=== PATIENT | male | born 1960 | race Caucasian/White ===

== ENCOUNTER 2021-03-28 13:36 | Inpatient (IN) | payer MEDICARE, OTHER ==
[2021-03-28 14:44] LABS: Basophils % (A) 0 %; Eosinophils # (A) 0.1 k/uL (0-0.7); Eosinophils % (A) 1 %; HCT 48.9 % (39.0-53.0); HGB 16.8 gm/dL (13.0-17.5); Lymphocytes # (A) 0.8 k/uL (1.0-4.8); Lymphocytes % (A) 7 %; MCH 33.4 pg (25.0-35.0); MCHC 34.4 g/dL (31.0-37.0); MCV 97.2 fL (80.0-100.0); Mean Platelet Volume 8.9; Monocytes # (A) 0.8 k/uL (0-1.0); Monocytes % (A) 6 %; Neutrophils # (A) 10.2 k/uL (1.3-7.7); Neutrophils % (A) 85 %; Platelet Count 173 k/uL (150-450); RBC 5.03 m/uL (4.30-5.90); RDW 13.9 % (11.5-15.5); WBC 11.9 k/uL (3.8-10.6)
[2021-03-28 14:46] LABS: Appearance,Urine Cloudy (Clear); Bacteria,Urine Rare /hpf; Bilirubin,Urine Negative (Negative); Blood,Urine Large (Negative); Color,Urine Yellow; Glucose,Urine (UA) Negative (Negative); Ketones,Urine Trace (Negative); Leukocyte Esterase,Urine Negative (Negative); Mucus,Urine Rare /hpf; Nitrite,Urine Negative (Negative); PH, Urine 5.5 (5.0-8.0); Protein,Urine Trace (Negative); RBC,Urine 28 /hpf (0-5); Squamous Epithelial Cell,Urine <1 /hpf (0-4); Urobilinogen,Urine <2.0 mg/dL (<2.0); WBC,Urine 3 /hpf (0-5)
[2021-03-28 14:55] LABS: Albumin 4.5 g/dL (3.5-5.0); Calcium 9.9 mg/dL (8.4-10.2); Potassium 4.2 mmol/L (3.5-5.1); Total Bilirubin 0.5 mg/dL (0.2-1.3)
[2021-03-28] MEDS ORDERED: KETOROLAC 15 MG/ML 1 ML VIAL IVP STA (16:30)
[2021-03-28] MEDS ORDERED: ONDANSETRON 4 MG/2 ML VIAL IVP STA (16:43)
[2021-03-28] MEDS ORDERED: SODIUM CHLORIDE 0.9% 1,000 ML IV ONE ×2 (16:43→19:14)
[2021-03-28] MEDS ORDERED: MORPHINE SULFATE 4 MG/ML SYRINGE IVP STA (16:43)
--- NOTE | 2021-03-28 17:45 | CT ---
EXAMINATION TYPE: CT abdomen pelvis w con DATE OF EXAM: 03/28/2021 COMPARISON: None HISTORY: Abdominal pain and nausea. CT DLP: 1776.6 mGycm Automated exposure control for dose reduction was used. CONTRAST: Performed with IV Contrast, patient injected with 100 mL of Isovue 300. The lung bases are clear of consolidation. There is no pleural effusion. Heart size is normal. There is no pericardial effusion. Stomach is intact. Liver and spleen and pancreas appear intact. The bile ducts are not dilated. There are several large calcified gallstones. Gallbladder has normal size. There is no adrenal mass. Kidneys have normal size. There is left-sided hydronephrosis and delayed le ft side pyelogram. There is mild left-sided hydroureter. There is 5 mm obstructing calculus distal le ft ureter. Right kidney shows normal excretion on the delayed images. There is no retroperitoneal jose nopathy. Bladder distends smoothly. There is no inguinal hernia. There is no free fluid in the pelvis . There are some sigmoid diverticula. I see no sign of diverticulitis. Appendix is lateral and posterio r and appears normal. There is no mesenteric edema. There is no ascites or free air. There is no jac l obstruction. The lumbar vertebra have normal alignment. There is large posterior calcification of t he endplates at L5-S1. There is developmentally adequate spinal canal and no significant spinal steno sis. There is no lumbar compression fracture. The bony pelvis is intact. The hip joints are intact. IMPRESSION: Obstructing calculus lower left ureter with left-sided hydronephrosis and hydroureter. The Normal appendix. Large calcified gallstones. No dilated ducts. Sigmoid diverticulosis.
[2021-03-28] MEDS ORDERED: NALOXONE 0.4 MG/ML 1 ML VIAL IV PRN (19:02)
[2021-03-28] MEDS ORDERED: MORPHINE SULFATE 4 MG/ML SYRINGE IV PRN (19:02)
[2021-03-28] MEDS ORDERED: KETOROLAC 15 MG/ML 1 ML VIAL IVP PRN (19:02)
[2021-03-28] MEDS ORDERED: ONDANSETRON 4 MG/2 ML VIAL IVP PRN (19:02)
--- NOTE | 2021-03-28 19:09 | ED ---
General Adult HPI - General Chief complaint: Abdominal Pain Stated complaint: Male , vomiting Time Seen by Provider: 03/28/21 16:10 Source: patient, RN notes reviewed, old records reviewed Mode of arrival: ambulatory Limitations: no limitations - History of Present Illness Initial comments: I evaluated the patient was placed in a room. Workup was started in the waiting room by nursing staff. Patient is a 60-year-old male with past medical history remarkable for CVA, TIA with no residual deficits other than blindness in the right eye as well as a remote history of renal stones presents emergency Department complaining of left flank plain. She states that this started today. He describes it as a sharp sensation in his left flank that radiates up to his left lower back as well as his left groin. This is similar to prior episodes of nephrolithiasis which he has not experienced in some years. He is endorsing some nausea as well as nonbilious, bloody emesis. Denies any change in bowel habits, and is still experiencing normal flatus. Denies any dysuria but does endorse hematuria. Denies any fevers or chills. Denies any chest pain, s hortness of breath. Denies any sick contacts. He still able to urinate. His no other acute complaints at this time. - Related Data Home Medications Medication Instructions Recorded Confirmed Aspirin EC [Ecotrin Low Dose] 81 mg PO DAILY 03/28/21 03/28/21 Allergies Allergy/AdvReac Type Severity Reaction Status Date / Time No Known Allergies Allergy Verified 03/28/21 18:46 Review of Systems ROS Statement: Those systems with pertinent positive or pertinent negative responses have been documented in the HPI. Review of Systems: CONST: Denies fever EYES: Denies blurry vision ENT: Denies nasal congestion C/V: Denies Chest pain RESP: Denies shortness of breath GI: Endorses abdominal pain/flank pain : Denies dysuria SKIN: Denies rash. MSK: Denies joint pain. NEURO: Denies headache ROS Other: All systems not noted in ROS Statement are negative. Past Medical History Past Medical History: CVA/TIA Past Surgical History: Orthopedic Surgery Past Psychological History: Anxiety, Bipolar, Depression, PTSD Smoking Status: Current every day smoker Past Alcohol Use History: Rare Past Drug Use History: None Reported General Exam - General Exam Comments Initial Comments: General: Appears in no acute distress. HEAD: Normal with no signs of head trauma. EYES: PERRLA, EOMI, conjunctiva normal, no discharge. ENT: Hearing grossly intact, normal oropharynx. RESPIRATORY: Clear breath sounds bilaterally. No wheezes, rales, or rhonchi. C/V: Regular rate and rhythm. S1 and S2 auscultated, no edema, peripheral pulses 2+ and intact throughout ABD: Abdomen is soft, nondistended. Patient has left-sided flank tenderness to palpation with radiation to his left groin. His no left lower quadrant tenderness palpation. There is no rebound wrist peritoneal signs. Patient does have left CVA tenderness to percussion. EXT: Normal range of motion, no obvious deformity SKIN: No rashes or lesions observed on exposed skin. NEURO: Alert and oriented 4. Limitations: no limitations Course Vital Signs 03/28/21 03/28/21 03/28/21 14:24 18:19 20:00 Temperature 98.1 F 97.7 F Pulse Rate 58 L 55 L 130 H Respiratory 18 18 Rate Blood Pressure 189/84 177/76 O2 Sat by Pulse 95 95 Oximetry Medical Decision Making - Medical Decision Making Based on patient's presentation and physical exam, I'm concerned for was likely nephrolithiasis and possible hydronephrosis. Laboratory studies were done by nursing staff revealed a mild leukocytosis of 11.9 which could be reactive. Patient is mildly deep bicarb at 20. Patient's urinalysis is relatively u nremarkable except for hematuria. Is not impressive for infection at this time. Addition to the workup performed by nursing staff, did recommend that we obtain a CT abdomen and pelvis due to his pain. He was in agreement this plan. Also be given a 1 L fluid bolus as well as IV morphine, Toradol, Zofran. Patient was in agreement this plan. Patient's CT imaging revealed a 5 mm nephrolithiasis in the distal left ureter. There are also signs of hydronephrosis. There is some sigmoid diverticula as well without diverticulitis. There are calcified gallstones as well. Remaining a CT is relatively unremarkable. On reevaluation, patient still complaining of pain as well as nausea and vomiti ng. I did recommend that we admit him to the hospital for pain control, nausea and vomiting control, as well as evaluation by urology due to his nephrolithiasis. He was in agreement this plan. I consulted urology and spoke with the attending it application administrator, Dr. Méndez was in agreement with the plan. Patient has no PCP and will therefore be admitted to city call, and I spoke with the mid-level provider Phan Todd who accepted the patient. Patient was therefore admitted to the hospital and serous condition. - Lab Data Result diagrams: 03/28/21 14:32 03/28/21 14:32 Lab Results 03/28/21 03/28/21 03/28/21 Range/Units 14:32 14:32 14:32 WBC 11.9 H (3.8-10.6) k/uL RBC 5.03 (4.30-5.90) m/uL Hgb 16.8 (13.0-17.5) gm/dL Hct 48.9 (39.0-53.0) % MCV 97.2 (80.0-100.0) fL MCH 33.4 (25.0-35.0) pg MCHC 34.4 (31.0-37.0) g/dL RDW 13.9 (11.5-15.5) % Plt Count 173 (150-450) k/uL MPV 8.9 Neutrophils % 85 % Lymphocytes % 7 % Monocytes % 6 % Eosinophils % 1 % Basophils % 0 % Neutrophils # 10.2 H (1.3-7.7) k/uL Lymphocytes # 0.8 L (1.0-4.8) k/uL Monocytes # 0.8 (0-1.0) k/uL Eosinophils # 0.1 (0-0.7) k/uL Basophils # 0.0 (0-0.2) k/uL Sodium 139 (137-145) mmol/L Potassium 4.2 (3.5-5.1) mmol/L Chloride 111 H (98-107) mmol/L Carbon Dioxide 20 L (22-30) mmol/L Anion Gap 8 mmol/L BUN 20 (9-20) mg/dL Creatinine 1.16 (0.66-1.25) mg/dL Est GFR (CKD-EPI)AfAm 79 (>60 ml/min/1.73 sqM) Est GFR (CKD-EPI)NonAf 68 (>60 ml/min/1.73 sqM) Glucose 134 H (74-99) mg/dL Calcium 9.9 (8.4-10.2) mg/dL Total Bilirubin 0.5 (0.2-1.3) mg/dL AST 42 (17-59) U/L ALT 34 (4-49) U/L Alkaline Phosphatase 79 (38-126) U/L Total Protein 7.0 (6.3-8.2) g/dL Albumin 4.5 (3.5-5.0) g/dL Amylase 45 (30-110) U/L Lipase 46 (23-300) U/L Urine Color Yellow Urine Appearance Cloudy (Clear) Urine pH 5.5 (5.0-8.0) Ur Specific [place] 1.020 (1.001-1.035) Urine Protein Trace H (Negative) Urine Glucose (UA) Negative (Negative) Urine Ketones Trace H (Negative) Urine Blood Large H (Negative) Urine Nitrite Negative (Negative) Urine Bilirubin Negative (Negative) Urine Urobilinogen <2.0 (<2.0) mg/dL Ur Leukocyte Esterase Negative (Negative) Urine RBC 28 H (0-5) /hpf Urine WBC 3 (0-5) /hpf Ur Squamous Epith Cells <1 (0-4) /hpf Urine Bacteria Rare H (None) /hpf Urine Mucus Rare H (None) /hpf Disposition Clinical Impression: Nephrolithiasis, Hydronephrosis, Abdominal pain, Nausea and vomiting Disposition: ADMITTED IP TO THIS [facility] Condition: Serious
[2021-03-29] MEDS: HEPARIN SODIUM,PORCINE/PF 5,000 UNIT/0.5 ML SYRINGE SQ SCH ×2 (03:20→08:51)
[2021-03-29 05:03] VITALS: BP 108/65; PULSE 56; RESP 18; TEMP 97.7
[2021-03-29] MEDS ORDERED: TAMSULOSIN 0.4 MG CAP.ER.24H PO SCH (08:30)
[2021-03-29] MEDS ORDERED: ASPIRIN 81 MG PO SCH (09:00)
--- NOTE | 2021-03-29 09:42 | P.GSCN ---
History of Present Illness Consult date: 03/29/21 Reason for Consult: Left renal colic Requesting physician: Shawn Darby History of present illness: The patient is a 60-year-old white male who presented to the ER yesterday with acute onset of left flank pain radiating to the left groin. He experienced associated nausea, vomiting, and gross hematuria. A CT scan showed mild left hydroureteronephrosis due to a 5 mm left distal ureteral calculus. He was admitted for treatment consisting of IV hydration and parenteral analgesics. He is currently comfortable. Review of Systems - Constitutional Denies chills, Denies fever - Gastrointestinal Reports nausea, Reports vomiting - Genitourinary Reports flank pain, Reports hematuria, Reports kidney stones Past Medical History Past Medical History: CVA/TIA History of Any Multi-Drug Resistant Organisms: None Reported Past Surgical History: Orthopedic Surgery Additional Past Surgical History / Comment(s): shoulder Past Psychological History: Anxiety, Bipolar, Depression, PTSD Smoking Status: Current every day smoker Past Alcohol Use History: Rare Past Drug Use History: None Reported Medications and Allergies Home Medications Medication Instructions Recorded Confirmed Type Aspirin EC [Ecotrin Low Dose] 81 mg PO DAILY 03/28/21 03/28/21 History Acetaminophen Tab [Tylenol Tab] 500 mg PO Q6H PRN #30 tablet 03/29/21 Rx HYDROcodone/APAP 5-325MG [[place] 1 tab PO Q6HR PRN #10 tab 03/29/21 Rx 5-325] Ondansetron [Zofran] 4 mg PO Q8HR PRN #12 tab 03/29/21 Rx Tamsulosin [Flomax] 0.4 mg PO PC-BRKFST #30 cap.er.24h 03/29/21 Rx Allergies Allergy/AdvReac Type Severity Reaction Status Date / Time No Known Allergies Allergy Verified 03/28/21 18:46 Surgical - Exam Vital Signs Temp Pulse Resp BP Pulse Ox 98.1 F 58 L 18 189/84 95 03/28/21 14:24 03/28/21 14:24 03/28/21 14:24 03/28/21 14:24 03/28/21 14:24 - General well developed, well nourished, no distress - Respiratory normal respiratory effort - Abdomen Abdomen: soft, non tender, no guarding, no rigid, no rebound - Genitourinary normal penis with no external lesions, testicles non-tender - Psychiatric oriented to time, oriented to person, oriented to place, speech is normal, memory intact Results - Labs 03/28/21 14:32 03/28/21 14:32 Abnormal Lab Results - Last 24 Hours (Table) 03/28/21 03/28/21 03/28/21 Range/Units 14:32 14:32 14:32 WBC 11.9 H (3.8-10.6) k/uL Neutrophils # 10.2 H (1.3-7.7) k/uL Lymphocytes # 0.8 L (1.0-4.8) k/uL Chloride 111 H (98-107) mmol/L Carbon Dioxide 20 L (22-30) mmol/L Glucose 134 H (74-99) mg/dL Urine Protein Trace H (Negative) Urine Ketones Trace H (Negative) Urine Blood Large H (Negative) Urine RBC 28 H (0-5) /hpf Urine Bacteria Rare H (None) /hpf Urine Mucus Rare H (None) /hpf Diabetes panel 03/28/21 Range/Units 14:32 Sodium 139 (137-145) mmol/L Potassium 4.2 (3.5-5.1) mmol/L Chloride 111 H (98-107) mmol/L Carbon Dioxide 20 L (22-30) mmol/L BUN 20 (9-20) mg/dL Creatinine 1.16 (0.66-1.25) mg/dL Glucose 134 H (74-99) mg/dL Calcium 9.9 (8.4-10.2) mg/dL AST 42 (17-59) U/L ALT 34 (4-49) U/L Alkaline Phosphatase 79 (38-126) U/L Total Protein 7.0 (6.3-8.2) g/dL Albumin 4.5 (3.5-5.0) g/dL Calcium panel 03/28/21 Range/Units 14:32 Calcium 9.9 (8.4-10.2) mg/dL Albumin 4.5 (3.5-5.0) g/dL Pituitary panel 03/28/21 Range/Units 14:32 Sodium 139 (137-145) mmol/L Potassium 4.2 (3.5-5.1) mmol/L Chloride 111 H (98-107) mmol/L Carbon Dioxide 20 L (22-30) mmol/L BUN 20 (9-20) mg/dL Creatinine 1.16 (0.66-1.25) mg/dL Glucose 134 H (74-99) mg/dL Calcium 9.9 (8.4-10.2) mg/dL Adrenal panel 03/28/21 Range/Units 14:32 Sodium 139 (137-145) mmol/L Potassium 4.2 (3.5-5.1) mmol/L Chloride 111 H (98-107) mmol/L Carbon Dioxide 20 L (22-30) mmol/L BUN 20 (9-20) mg/dL Creatinine 1.16 (0.66-1.25) mg/dL Glucose 134 H (74-99) mg/dL Calcium 9.9 (8.4-10.2) mg/dL Total Bilirubin 0.5 (0.2-1.3) mg/dL AST 42 (17-59) U/L ALT 34 (4-49) U/L Alkaline Phosphatase 79 (38-126) U/L Total Protein 7.0 (6.3-8.2) g/dL Albumin 4.5 (3.5-5.0) g/dL - Imaging CT scan - abdomen: report reviewed, image reviewed Assessment and Plan (1) Calculus of ureter Current Visit: Yes Status: Acute Code(s): N20.1 - CALCULUS OF URETER SNOMED Code(s): 80005164 (2) Hydronephrosis with renal and ureteral calculous obstruction Current Visit: Yes Status: Acute Code(s): N13.2 - HYDRONEPHROSIS WITH RENAL AND URETERAL CALCULOUS OBSTRUCTION SNOMED Code(s): 852457676 Plan: In summary, the patient is a 60-year-old white male admitted with left renal colic due to a 5 mm left distal ureteral calculus. His pain is currently controlled. He passed some blood yesterday evening after being admitted. His urine has not been strained, and therefore it is unclear whether he may or may not have passed the calculus. In any case, his pain is currently absent and he wishes to be discharged home. I have advised him to continue to strain his urine, and take analgesics as needed. We discussed surgical treatment options, though I explained to him that there is a high likelihood he will pass the calculus. He will follow-up with me in 2 weeks, sooner if needed. Time with Patient: Greater than 30
--- NOTE | 2021-03-29 12:54 | HP ---
HISTORY AND PHYSICAL This is a combined history and physical and discharge summary. DATE OF SERVICE: 03/29/2021 CHIEF COMPLAINTS: Left flank pain and left testicular pain. HISTORY OF PRESENT ILLNESS: This 60-year-old gentleman with a past medical history of multiple medical problems, including CVA, TIA, history of DJD, history of anxiety, bipolar, depression, PTSD, being followed by Dr. Tang in the outpatient setting, was complaining of left flank pain, left lower abdominal pain as well as left testicular pain. Evaluation in the ER showed WBC 11.9 and some mild hematuria. The patient also had a CT scan of the abdomen and pelvis which shows obstructing calculus in the lower left ureter and left-sided hydronephrosis and hydroureter. Dr. Méndez has evaluated the patient and recommended Flomax and outpatient followup also. The patient is keen to go home. There is no history of any fever, rigors or chills. No history of headache, loss of consciousness, seizures. No history of dysuria at this time. No history of chest pain or palpitations. PAST MEDICAL HISTORY: History of CVA, TIA, anxiety, bipolar, depression, PTSD. MEDICATIONS: Home medications are aspirin, Flomax, Zofran, [place], Tylenol. ALLERGIES: NONE. FAMILY HISTORY: No history of heart disease or strokes in the family. SOCIAL HISTORY: History of smoking on a daily basis. REVIEW OF SYSTEMS: ENT: No diminished hearing. No diminished vision. CARDIOVASCULAR SYSTEM: No angina, palpitations. RESPIRATORY SYSTEM: No cough, hemoptysis. GI: As mentioned earlier. : As mentioned earlier. NERVOUS SYSTEM: No numbness, weakness. ALLERGY/IMMUNOLOGY: No asthma or hay fever. MUSCULOSKELETAL: As mentioned earlier. HEMATOLOGY/ONCOLOGY: No history of anemia. ENDOCRINE: No history of diabetes, hypothyroidism. CONSTITUTIONAL: As mentioned earlier. DERMATOLOGY: Negative. RHEUMATOLOGY: Negative. PSYCHIATRY: As mentioned earlier. PHYSICAL EXAMINATION: Patient alert and oriented x3. Pulse 56, blood pressure 108/65, respiration 18, temperature 97.7, pulse ox 97% on room air. HEENT: Conjunctivae normal. NECK: No jugular venous distention. CARDIOVASCULAR: S1, S2 muffled. RESPIRATION: Breath sounds diminished at the bases. No rhonchi. No crackles. ABDOMEN: Soft. No tenderness. No guarding. No rigidity. No mass palpable. LEGS: No edema. No swelling. NERVOUS SYSTEM: Higher functions as mentioned earlier. Moves all 4 limbs. No focal motor or sensory deficit. LYMPHATICS: No lymph node palpable in neck, axillae or groin. SKIN: No ulcer, rash, bleeding. JOINTS: No active deforming arthropathy. LABS: WBC 11.9, sodium 136, potassium 4.2. Glucose 134. UA noted. ASSESSMENT: 1. Left-sided ureterolithiasis with severe abdominal pain, improved. 2. Obstructing calculus in the lower left ureter with left-sided hydronephrosis and hydroureter. 3. Increased white count, possibly reactive. 4. Increased random blood glucose. 5. History of cerebrovascular accident, transient ischemic attack. 6. History of anxiety, bipolar, depression, posttraumatic stress disorder. 7. History of nicotine dependence. 8. Obesity with body mass index of 34.5. 9. FULL CODE. RECOMMENDATIONS AND DISCUSSION: In this 60-year-old gentleman who presented with multiple medical problems, at this time the patient is symptomatically better. Urology evaluated the patient and recommended outpatient followup. The patient is keen on going home. The patient will be discharged in stable condition and guarded prognosis. DISCHARGE ADVICE AND MEDICATIONS: 1. Diet is cardiac. 2. Activity limited until followup. 3. Followup with Dr. Ezekiel Tang in 2-3 days with CBC, BMP. 4. Follow up with Dr. Méndez, Urology, as recommended. 5. Ecotrin 81 mg p.o. daily. 6. Flomax 0.4 daily. 7. [place] 5 mg q.6 p.r.n. 8. Tylenol p.r.n. 9. Zofran 4 mg q.8 p.r.n. for nausea. MMODL / IJN: [id number] /
== END 2021-03-29 10:30 | disposition home or self-care (01) | DRG 694 ==
LOC: EC 13:36 → 5NMEDONC 19:05
PROVIDERS: ADMIT Hospitalist; ATTEND Hospitalist
DX: N13.2 Hydronephrosis with renal and ureteral calculous obstruction (principal); R31.0 Gross hematuria; N50.812 Left testicular pain; K80.20 Calculus of gallbladder without cholecystitis without obstruction; E66.9 Obesity, unspecified; K57.30 Diverticulosis of large intestine without perforation or abscess without bleeding; H54.61 Unqualified visual loss, right eye, normal vision left eye; F43.10 Post-traumatic stress disorder, unspecified; F31.9 Bipolar disorder, unspecified; Z68.34 Body mass index [BMI] 34.0-34.9, adult; F41.9 Anxiety disorder, unspecified; D72.829 Elevated white blood cell count, unspecified; F17.210 Nicotine dependence, cigarettes, uncomplicated; Z79.82 Long term (current) use of aspirin; Z86.73 Personal history of transient ischemic attack (TIA), and cerebral infarction without residual deficits; Z87.442 Personal history of urinary calculi
CPT/HCPCS: 36415; 74177; 80053; 81001; 82150; 83690; 85025; 96374; 96375; 99285

== ENCOUNTER 2023-01-21 17:19 | Inpatient (IN) | payer MEDICARE, MEDICAID ==
[2023-01-21 18:31] LABS: Basophils % (A) 0 %; Eosinophils # (A) 0.1 k/uL (0-0.7); Eosinophils % (A) 1 %; HCT 47.1 % (39.0-53.0); Lymphocytes # (A) 1.4 k/uL (1.0-4.8); Lymphocytes % (A) 22 %; MCH 32.6 pg (25.0-35.0); MCV 95.7 fL (80.0-100.0); Mean Platelet Volume 7.9; Monocytes # (A) 0.5 k/uL (0-1.0); Monocytes % (A) 8 %; Neutrophils # (A) 4.4 k/uL (1.3-7.7); Neutrophils % (A) 67 %; Platelet Count 187 k/uL (150-450); RBC 4.92 m/uL (4.30-5.90); RDW 12.9 % (11.5-15.5); WBC 6.5 k/uL (3.8-10.6)
[2023-01-21 18:52] LABS: African American GFR (CKD) >90 (>60 ml/min/1.73 sqM); Alcohol <10 mg/dL; Anion Gap 9 mmol/L; Blood Urea Nitrogen 17 mg/dL (9-20); Calcium 8.9 mg/dL (8.4-10.2); Carbon Dioxide 21 mmol/L (22-30); Chloride 107 mmol/L (98-107); Glucose 107 mg/dL (74-99); Non-African American GFR(CKD) >90 (>60 ml/min/1.73 sqM); Potassium 3.8 mmol/L (3.5-5.1); Sodium 137 mmol/L (137-145)
[2023-01-21] MEDS ORDERED: LORazepam 2 MG/ML INJ IM STA (19:21)
--- NOTE | 2023-01-21 20:13 | ED ---
General Adult HPI - General Source: patient, police, RN notes reviewed, old records reviewed Mode of arrival: wheelchair <Gus Price - Last Filed: 01/21/23 20:05> <Dm Cochran - Last Filed: 01/22/23 00:52> - General Chief complaint: Psychiatric Symptoms Stated complaint: Mental Health Time Seen by Provider: 01/21/23 17:44 - History of Present Illness Initial comments: Patient is a 62-year-old male who presents emergency Department complaining of psychiatric evaluation. Patient was petitioned this patient has flight of ideas , pressured speech as well as conveying suicidal ideation. Patient denies anything to me, however he does have pressured speech throughout the conversation. Has no acute complaints. Does have a history of eye issues. His no other acute distress at this time. Presents for further evaluation. Denies hallucinations. Denies homicidal ideations. No other significant past medical history. Presents for further evaluation. Patient's petition states that he is manic, is threatening tissue himself in the head with a gun. Does have access to guns. No attempts. (Gus Price) - Related Data Home Medications Medication Instructions Recorded Confirmed ALPRAZolam [Xanax] 0.25 mg PO TID PRN 01/21/23 01/22/23 Allergies Allergy/AdvReac Type Severity Reaction Status Date / Time No Known Allergies Allergy Verified 01/22/23 00:10 Review of Systems ROS Other: All systems not noted in ROS Statement are negative. <Gus Price - Last Filed: 01/21/23 20:05> ROS Other: All systems not noted in ROS Statement are negative. <Dm Cochran - Last Filed: 01/22/23 00:52> ROS Statement: Those systems with pertinent positive or pertinent negative responses have been documented in the HPI. Review of Systems: CONST: Denies fever EYES: Denies blurry vision ENT: Denies nasal congestion C/V: Denies Chest pain RESP: Denies shortness of breath GI: Denies abdominal pain : Denies dysuria SKIN: Denies rash. MSK: Denies joint pain. NEURO: Denies headache PSYCH: Denies suicidal and homicidal ideations/plans/attempts. Denies visual or auditory hallucinations. (Gus Price) Past Medical History Past Medical History: CVA/TIA History of Any Multi-Drug Resistant Organisms: None Reported Past Surgical History: Orthopedic Surgery Additional Past Surgical History / Comment(s): shoulder Past Psychological History: Anxiety, Bipolar, Depression, PTSD Smoking Status: Current every day smoker Past Alcohol Use History: Rare Past Drug Use History: None Reported <Gus Price - Last Filed: 01/21/23 20:05> General Exam <Gus Price - Last Filed: 01/21/23 20:05> - General Exam Comments Initial Comments: General: Appears in no acute distress. Patient appears manic, has pressured speech as well as flight of ideas. HEAD: Normal with no signs of head trauma. EYES: EOMI ENT: Hearing grossly intact, normal oropharynx. RESPIRATORY: Clear breath sounds bilaterally. No wheezes, rales, or rhonchi. C/V: Regular rate and rhythm. S1 and S2 auscultated, peripheral pulses 2+ and intact throughout ABD: Abd is soft, nontender, nondistended EXT: Normal range of motion, no obvious deformity SKIN: No rashes or lesions observed on exposed skin. NEURO: Alert and oriented 4. No focal deficits. (Gus Price) Course Vital Signs 01/21/23 17:27 Temperature 98 F Pulse Rate 96 Respiratory 18 Rate Blood Pressure 161/92 O2 Sat by Pulse 96 Oximetry Medical Decision Making - Lab Data Result diagrams: 01/21/23 18:20 01/21/23 18:20 - EKG Data -: EKG Interpreted by Me <Gus Price - Last Filed: 01/21/23 20:05> - Lab Data Result diagrams: 01/21/23 18:20 01/21/23 18:20 <Dm Cochran - Last Filed: 01/22/23 00:52> - Medical Decision Making Was pt. sent in by a medical professional or institution (, PA, CONCRETE PLANT LABORER, urgent care, hospital, or jail...) When possible be specific @ -No Did you speak to anyone other than the patient for history (EMS, parent, family, police, friend...)? What history was obtained from this source @ -No Did you review nursing and triage notes (agree or disagree)? Why? @ -I reviewed and agree with nursing and triage notes Were old charts reviewed (outside hosp., previous admission, EMS record, old EKG, old radiological studies, urgent care reports/EKG's, jail records)? Report findings @ -I reviewed the patient's petition. Differential Diagnosis (chest pain, altered mental status, abdominal pain women, abdominal pain men, vaginal bleeding, weakness, fever, dyspnea, syncope, headache, dizziness, GI bleed, back pain, seizure, CVA, palpatations, mental health, musculoskeletal)? @ -Differential Mental Health Depression, anxiety, bipolar, psychosis, schizophrenia, borderline personality, situational depression, adjustment disorder, behavioral disorder, brain tumor, malingering, substance abuse, encephalopathy, medication reaction, dementia, hypothyroidism, degenerative neurologic disorder, lupus.... This is not meant to be all-inclusive list EKG interpreted by me (3pts min.). @ -As above X-rays interpreted by me (1pt min.). @ -None done CT interpreted by me (1pt min.). @ -None done U/S interpreted by me (1pt. min.). @ -None done What testing was considered but not performed or refused? (CT, X-rays, U/S, labs)? Why? @ -None What meds were considered but not given or refused? Why? @ -None Did you discuss the management of the patient with other professionals (professionals i.e. , PA, CONCRETE PLANT LABORER, lab, RT, psych nurse, 7th grade social studies teacher, developer architect, teacher, corporate security officer, keycase assembler)? Give summary @ -EPS notified patient is medically cleared for evaluation. Was smoking cessation discussed for >3mins.? @ -No Was critical care preformed (if so, how long)? @ -No Were there social determinants of health that impacted care today? How? (Homelessness, low income, unemployed, alcoholism, drug addiction, transportation, low edu. Level, literacy, decrease access to med. care, half-way, rehab)? @ -No Was there de-escalation of care discussed even if they declined (Discuss DNR or withdrawal of care, Hospice)? DNR status @ -No What co-morbidities impacted this encounter? (DM, HTN, Smoking, COPD, CAD, Cancer, CVA, ARF, Chemo, Hep., AIDS, mental health diagnosis, sleep apnea, morbid obesity)? @ -None Was patient admitted / discharged? Hospital course, mention meds given and route, prescriptions, significant lab abnormalities, going to OR and other pertinent info. @ -Based on the patient's presentation, physical exam, as well as petition I do believe he requires psychiatric evaluation. Due to his age we will obtain screening labs. Screening EKG will also be obtained. He was in agreement this plan. Vital signs within acceptable limits. He has obvious pressured speech and I'm concerned for an acute manic episode for acute psychotic episode. Labs are within acceptable limits. EKG unremarkable. Placed in green scrubs. Alcohol level is 0. Suicide precautions place. Severe was ordered. Patient is medically cleared psychiatric evaluation at this time. Disposition is per minute psychiatric evaluation. EPS was notified. Undiagnosed new problem with uncertain prognosis? @ -No Drug Therapy requiring intensive monitoring for toxicity (Heparin, Nitro, Insulin, Cardizem)? @ -No Were any procedures done? @ -No Diagnosis/symptom? @ -Acute psychosis, manic, but of ideas with pressured speech, suicidal ideations Acute, or Chronic, or Acute on Chronic? @ -Acute Uncomplicated (without systemic symptoms) or Complicated (systemic symptoms)? @ -Complicated Side effects of treatment? @ -No Exacerbation, Progression, or Severe Exacerbation? @ -No Poses a threat to life or bodily function? How? (Chest pain, USA, AL, pneumonia, PE, COPD, DKA, ARF, appy, cholecystitis, CVA, Diverticulitis, Homicidal, Suicidal, threat to staff... and all critical care pts) @ -yes (Gus Price) The patient was sent out to me from Dr. Price. The patient was signed out pending evaluation by EPS. The patient was evaluated by EPS the bedside and did recommend inpatient admission. I did fill out a clinical certificate for the patient and the patient did continue to remain stable. The patient was admitted in stable condition. (Dm Cochran) - Lab Data Lab Results 01/21/23 01/21/23 01/21/23 Range/Units 18:20 18:20 19:32 WBC 6.5 (3.8-10.6) k/uL RBC 4.92 (4.30-5.90) m/uL Hgb 16.0 (13.0-17.5) gm/dL Hct 47.1 (39.0-53.0) % MCV 95.7 (80.0-100.0) fL MCH 32.6 (25.0-35.0) pg MCHC 34.0 (31.0-37.0) g/dL RDW 12.9 (11.5-15.5) % Plt Count 187 (150-450) k/uL MPV 7.9 Neutrophils % 67 % Lymphocytes % 22 % Monocytes % 8 % Eosinophils % 1 % Basophils % 0 % Neutrophils # 4.4 (1.3-7.7) k/uL Lymphocytes # 1.4 (1.0-4.8) k/uL Monocytes # 0.5 (0-1.0) k/uL Eosinophils # 0.1 (0-0.7) k/uL Basophils # 0.0 (0-0.2) k/uL Sodium 137 (137-145) mmol/L Potassium 3.8 (3.5-5.1) mmol/L Chloride 107 (98-107) mmol/L Carbon Dioxide 21 L (22-30) mmol/L Anion Gap 9 mmol/L BUN 17 (9-20) mg/dL Creatinine 0.88 (0.66-1.25) mg/dL Est GFR (CKD-EPI)AfAm >90 (>60 ml/min/1.73 sqM) Est GFR (CKD-EPI)NonAf >90 (>60 ml/min/1.73 sqM) Glucose 107 H (74-99) mg/dL Calcium 8.9 (8.4-10.2) mg/dL Urine Color Urine Appearance (Clear) Urine pH (5.0-8.0) Ur Specific [place] (1.001-1.035) Urine Protein (Negative) Urine Glucose (UA) (Negative) Urine Ketones (Negative) Urine Blood (Negative) Urine Nitrite (Negative) Urine Bilirubin (Negative) Urine Urobilinogen (<2.0) mg/dL Ur Leukocyte Esterase (Negative) Urine Opiates Screen (NotDetected) Ur Oxycodone Screen (NotDetected) Urine Methadone Screen (NotDetected) Ur Propoxyphene Screen (NotDetected) Ur Barbiturates Screen (NotDetected) U Tricyclic Antidepress (NotDetected) Ur Phencyclidine Scrn (NotDetected) Ur Amphetamines Screen (NotDetected) U Methamphetamines Scrn (NotDetected) U Benzodiazepines Scrn (NotDetected) Urine Cocaine Screen (NotDetected) U Marijuana (THC) Screen (NotDetected) Serum Alcohol <10 mg/dL Coronavirus (PCR) Not Detected (Not Detectd) 01/21/23 01/21/23 Range/Units 20:00 20:00 WBC (3.8-10.6) k/uL RBC (4.30-5.90) m/uL Hgb (13.0-17.5) gm/dL Hct (39.0-53.0) % MCV (80.0-100.0) fL MCH (25.0-35.0) pg MCHC (31.0-37.0) g/dL RDW (11.5-15.5) % Plt Count (150-450) k/uL MPV Neutrophils % % Lymphocytes % % Monocytes % % Eosinophils % % Basophils % % Neutrophils # (1.3-7.7) k/uL Lymphocytes # (1.0-4.8) k/uL Monocytes # (0-1.0) k/uL Eosinophils # (0-0.7) k/uL Basophils # (0-0.2) k/uL Sodium (137-145) mmol/L Potassium (3.5-5.1) mmol/L Chloride (98-107) mmol/L Carbon Dioxide (22-30) mmol/L Anion Gap mmol/L BUN (9-20) mg/dL Creatinine (0.66-1.25) mg/dL Est GFR (CKD-EPI)AfAm (>60 ml/min/1.73 sqM) Est GFR (CKD-EPI)NonAf (>60 ml/min/1.73 sqM) Glucose (74-99) mg/dL Calcium (8.4-10.2) mg/dL Urine Color Yellow Urine Appearance Clear (Clear) Urine pH 5.0 (5.0-8.0) Ur Specific [place] 1.025 (1.001-1.035) Urine Protein Trace H (Negative) Urine Glucose (UA) Negative (Negative) Urine Ketones 1+ H (Negative) Urine Blood Negative (Negative) Urine Nitrite Negative (Negative) Urine Bilirubin Negative (Negative) Urine Urobilinogen <2.0 (<2.0) mg/dL Ur Leukocyte Esterase Negative (Negative) Urine Opiates Screen Not Detected (NotDetected) Ur Oxycodone Screen Not Detected (NotDetected) Urine Methadone Screen Not Detected (NotDetected) Ur Propoxyphene Screen Not Detected (NotDetected) Ur Barbiturates Screen Not Detected (NotDetected) U Tricyclic Antidepress Not Detected (NotDetected) Ur Phencyclidine Scrn Not Detected (NotDetected) Ur Amphetamines Screen Not Detected (NotDetected) U Methamphetamines Scrn Not Detected (NotDetected) U Benzodiazepines Scrn Detected H (NotDetected) Urine Cocaine Screen Not Detected (NotDetected) U Marijuana (THC) Screen Detected H (NotDetected) Serum Alcohol mg/dL Coronavirus (PCR) (Not Detectd) - EKG Data EKG Comments: 12-lead Electrocardiogram Interpretation Note EKG was reviewed and interpreted by myself. 12-lead ECG performed at 1922 is interpreted by me as revealing normal sinus rhythm at a rate of 76 beats per minute. Right axis deviation. CA interval is 165 ms, QRS duration is 126 ms, QTc is 434 ms. When isolated T-wave inversion in lead III.. There were no obvious ST or T wave abnormalities to suggest myocardial ischemia or injury. R wave progression across the precordium was satisfactory. By my interpretation this EKG is non-diagnostic for acute ischemia. (Gus Price) Disposition <Gus Price - Last Filed: 01/21/23 20:05> Is patient prescribed a controlled substance at d/c from ED?: No Time of Disposition: 00:05 Decision to Admit Reason: Admit from EC Decision Date: 01/22/23 Decision Time: 00:05 <Dm Cochran - Last Filed: 01/22/23 00:52> Clinical Impression: Suicidal ideation, Acute psychosis, Marissa Disposition: ADMITTED IP TO THIS HOSP Condition: Stable
[2023-01-21 20:32] LABS: Amphetamine Screen,Urine Not Detected (NotDetected); Barbiturate Screen,Urine Not Detected (NotDetected); Benzodiazepines Screen,Urine Detected (NotDetected); Cocaine Screen,Urine Not Detected (NotDetected); Methadone Screen, Urine Not Detected (NotDetected); Opiate Screen,Urine Not Detected (NotDetected); Oxycodone Screen, Urine Not Detected (NotDetected); Phencyclidine Screen,Urine Not Detected (NotDetected); Tricyclic Antidepressant,Urine Not Detected (NotDetected); Urn Cannabinoid Scrn Detected (NotDetected)
[2023-01-21] MEDS ORDERED: OLANZapine 10 MG VIAL IM ONE (23:00)
[2023-01-22] MEDS ORDERED: ACETAMINOPHEN TAB 325 MG TAB PO PRN (00:05)
[2023-01-22] MEDS ORDERED: MAGNESIUM HYDROXIDE 2,400 MG/30 ML CUP PO PRN (00:05)
[2023-01-22] MEDS ORDERED: MAG HYDROX/AL HYDROX/SIMETH 30 ML CUP PO PRN (00:05)
[2023-01-22] MEDS ORDERED: OLANZapine 10 MG VIAL IM PRN (00:08)
[2023-01-22] MEDS ORDERED: OLANZapine 5 MG TAB PO PRN (00:08)
[2023-01-22] MEDS ORDERED: hydrOXYzine pamoate 25 MG CAP PO PRN (00:09)
[2023-01-22] MEDS ORDERED: hydrOXYzine HCL 50 MG/ML 1 ML VIAL IM PRN (00:09)
[2023-01-22 00:17] LABS: Appearance,Urine Clear (Clear); Bilirubin,Urine Negative (Negative); Blood,Urine Negative (Negative); Color,Urine Yellow; Glucose,Urine (UA) Negative (Negative); Ketones,Urine 1+ (Negative); Leukocyte Esterase,Urine Negative (Negative); Nitrite,Urine Negative (Negative); Protein,Urine Trace (Negative); Specific Gravity,Urine 1.025 (1.001-1.035); Urobilinogen,Urine <2.0 mg/dL (<2.0)
[2023-01-22] MEDS: NICOTINE 14MG/24HR PATCH TRANSDERM SCH (09:46)
[2023-01-22 10:47] LABS: ALT 34 U/L (4-49); AST 43 U/L (17-59); Albumin 4.3 g/dL (3.5-5.0); Alkaline Phosphatase 81 U/L (38-126); Bilirubin, Delta 0.3 mg/dL (0.0-0.2); Total Bilirubin 1.3 mg/dL (0.2-1.3); Total Protein 7.1 g/dL (6.3-8.2)
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
[2023-01-22 16:43] LABS: Chol/HDL Ratio 3.32 Ratio; VLDL Calculation 15.48 mg/dL (5.00-40.00)
[2023-01-22] MEDS ORDERED: QUEtiapine 50 MG TAB PO SCH (21:00)
[2023-01-22] MEDS: DIVALPROEX SPRINKLE 125 MG CAP.SPRINK PO SCH (21:39)
--- NOTE | 2023-01-23 02:59 | P.CONS ---
History of Present Illness - Reason for Consult Consult date: 01/22/23 Medical evaluation - Chief Complaint Psych evaluation - History of Present Illness 62-year-old male with history of stroke Patient refused medical evaluation ER chart review shows that patient come in for psych evaluation he was petitioned due to psychosis with flight of ideas and pressured speech he also conveyed some suicidal ideation the petition states that he was manic and was threatening to cut himself by using a gun to his head and that he does have access to Review of systems unavailable Physical exam unavailable patient declined Assessment and plan Suicidal ideation Psychosis Management per psych Blood work reviewed showed White count of 6.5 hemoglobin 16 both unremarkable Renal function sodium 137 potassium 3.8 BUN 17 creatinine 0.88 unremarkable Urine drug screen positive for meth and marijuana Thank you for this consultation placed which at [facility] if patient is willing to discuss Past Medical History Past Medical History: CVA/TIA Additional Past Medical History / Comment(s): States was at [facility] 01/13- for TIA History of Any Multi-Drug Resistant Organisms: None Reported Past Surgical History: Orthopedic Surgery Additional Past Surgical History / Comment(s): shoulder Past Anesthesia/Blood Transfusion Reactions: Unable to Obtain Past Psychological History: Anxiety, Bipolar, Depression, PTSD Smoking Status: Current every day smoker Past Alcohol Use History: Rare Past Drug Use History: Marijuana Additional Drug Use History / Comment(s): 01/21/2023 UDS +benzos (prescribed) and marijuana Medications and Allergies Home Medications Medication Instructions Recorded Confirmed Type ALPRAZolam [Xanax] 0.25 mg PO TID PRN 01/21/23 01/22/23 History Allergies Allergy/AdvReac Type Severity Reaction Status Date / Time No Known Allergies Allergy Verified 01/22/23 00:10 Physical Exam Vitals: Vital Signs Temp Pulse Resp BP Pulse Ox 01/22/23 04:32 97.2 F L 61 15 169/76 96 Results CBC & Chem 7: 01/21/23 18:20 01/21/23 18:20 Labs: Abnormal Lab Results - Last 24 Hours (Table) 01/22/23 Range/Units 10:00 Delta Bilirubin 0.3 H (0.0-0.2) mg/dL
[2023-01-23] MEDS: NICOTINE 14MG/24HR PATCH TRANSDERM SCH (08:19)
[2023-01-23] MEDS: DIVALPROEX SPRINKLE 125 MG CAP.SPRINK PO SCH ×2 (08:19→21:28)
[2023-01-23] MEDS ORDERED: DIVALPROEX SPRINKLE 125 MG CAP.SPRINK PO STA (11:06)
--- NOTE | 2023-01-23 13:19 | P.PN ---
Progress Note - Text Progress Note Date: 01/23/23 Interval History: Patient was seen wandering the hallways and was directable and agreeable to speak with writer editor in the office. Currently, the patient continues to display mood lability, pressured speech, and endorses grandiose delusions. The patient continues to be fixated on discharge and attempts to bargain with this provider in order to be discharged earlier. He states that he will take the medications if it means that he can leave and come back when he needs to. The patient was informed that he is being held involuntarily and has been petitioned and certified for mental health treatment. He is currently denying any suicidal or homicidal ideation, intention, and/or plan. He is not reporting any auditory or visual hallucinations. He continues to be quite labile and grandiose and often make statements about how he is smarter than everyone in the unit. He also has been refusing medications. Mental Status Exam: General Appearance: Patient appears to be stated age is alert, difficult to direct and attempts to cooperate. Behavior: Displays elevated psychomotor activity. Speech: Patient's speech is fluent and spontaneous. Loud in volume. Pressured. Mood/Affect: Mood is "I'm ready to go home," affect is expansive and labile. Suicidality/Homicidality: Patient reports no suicidal or homicidal ideation, intention, and/or plan. Perceptions: Patient denies any visual hallucinations and denies any auditory hallucinations Though content/process: Flight of ideas and loose association is evident. Grandiose. Memory and concentration: Grossly poor at this time Judgment and insight: Poor Vital Signs Temp 97.9 F 01/23/23 07:12 Pulse 88 01/23/23 07:12 Resp 19 01/23/23 07:12 BP 191/75 01/23/23 07:12 Pulse Ox 92 L 01/23/23 07:12 FiO2 Laboratory Results - Last 24 Hours 01/22/23 01/22/23 10:00 10:[address] Glu mg/dL 111 Hemoglobin A1c 5.5 Triglycerides 77.40 Cholesterol 161.00 LDL Cholesterol, Calc 97.0 VLDL Cholesterol, Calc 15.48 HDL Cholesterol 48.50 Cholesterol/HDL Ratio 3.32 Assessment Bipolar 1 disorder, manic episode Cannabis use disorder Nicotine dependence PTSD Plan: -Patient continues to meet criteria for inpatient psychiatric admission for symptom stabilization and safety. The patient has been petitioned and certified. -Medications: Patient has been nonadherent with his medications. He states he'll take them today. Continue Depakote 500 mg by mouth twice a day for mood stabilization Continue Seroquel 100 mg daily at bedtime for mood stabilization -When necessary Zyprexa and Vistaril for agitation/aggression. -NRT - nicotine patch -SW on board for discharge planning. Encouraged the patient to participate in milieu.
[2023-01-23] MEDS ORDERED: QUEtiapine 100 MG TAB PO SCH (21:00)
[2023-01-24] MEDS: DIVALPROEX SPRINKLE 125 MG CAP.SPRINK PO SCH (08:23)
[2023-01-24] MEDS: NICOTINE 14MG/24HR PATCH TRANSDERM SCH (08:24)
[2023-01-24] MEDS: ARIPiprazole 10 MG TAB PO SCH (12:33)
--- NOTE | 2023-01-24 13:09 | P.PN ---
Progress Note - Text Progress Note Date: 01/24/23 Interval History: Patient was seen wandering the hallways and was directable and agreeable to speak with life insurance underwriter in the office. The patient continues to go on multiple tangents and present with pressured nonlinear speech. His mood continues to be labile. Despite this provider educating him on the process of inpatient psychiatric hospitalization, the patient constantly requires reeducation and continues to be very fixated on discharge or "bringing my guitar in so I can play for the patients." He is not reporting any suicidal or homicidal ideation, intention, and/or plan. He is not reporting any auditory or visual hallucinations. He denies any paranoia however does report some grandiosity. He has been refusing the Seroquel however states that he will take Abilify. He is agreeable with the titration of his Depakote. Mental Status Exam: Grossly unchanged from yesterday to General Appearance: Patient appears to be stated age is alert, difficult to direct and attempts to cooperate. Behavior: Displays elevated psychomotor activity. Speech: Patient's speech is fluent and spontaneous. Loud in volume. Pressured. More interruptible today. Mood/Affect: Mood is "I need to go home," affect is expansive and labile. Suicidality/Homicidality: Patient reports no suicidal or homicidal ideation, intention, and/or plan. Perceptions: Patient denies any visual hallucinations and denies any auditory hallucinations Though content/process: Flight of ideas and loose association is evident. Grandiose. Memory and concentration: Grossly poor at this time Judgment and insight: Poor Vital Signs Temp 97.4 F L 01/24/23 06:55 Pulse 76 01/24/23 06:55 Resp 18 01/24/23 06:55 BP 172/80 01/24/23 06:55 Pulse Ox 92 L 01/23/23 07:12 FiO2 Laboratory Results WBC 6.5 k/uL (3.8-10.6) 01/21/23 18:20 RBC 4.92 m/uL (4.30-5.90) 01/21/23 18:20 Hgb 16.0 gm/dL (13.0-17.5) 01/21/23 18:20 Hct 47.1 % (39.0-53.0) 01/21/23 18:20 MCV 95.7 fL (80.0-100.0) 01/21/23 18:20 MCH 32.6 pg (25.0-35.0) 01/21/23 18:20 MCHC 34.0 g/dL (31.0-37.0) 01/21/23 18:20 RDW 12.9 % (11.5-15.5) 01/21/23 18:20 Plt Count 187 k/uL (150-450) 01/21/23 18:20 MPV 7.9 01/21/23 18:20 Neutrophils % 67 % 01/21/23 18:20 Lymphocytes % 22 % 01/21/23 18:20 Monocytes % 8 % 01/21/23 18:20 Eosinophils % 1 % 01/21/23 18:20 Basophils % 0 % 01/21/23 18:20 Neutrophils # 4.4 k/uL (1.3-7.7) 01/21/23 18:20 Lymphocytes # 1.4 k/uL (1.0-4.8) 01/21/23 18:20 Monocytes # 0.5 k/uL (0-1.0) 01/21/23 18:20 Eosinophils # 0.1 k/uL (0-0.7) 01/21/23 18:20 Basophils # 0.0 k/uL (0-0.2) 01/21/23 18:20 Sodium 137 mmol/L (137-145) 01/21/23 18:20 Potassium 3.8 mmol/L (3.5-5.1) 01/21/23 18:20 Chloride 107 mmol/L (98-107) 01/21/23 18:20 Carbon Dioxide 21 mmol/L (22-30) L 01/21/23 18:20 Anion Gap 9 mmol/L 01/21/23 18:20 BUN 17 mg/dL (9-20) 01/21/23 18:20 Creatinine 0.88 mg/dL (0.66-1.25) 01/21/23 18:20 Est GFR (CKD-EPI)AfAm >90 (>60 ml/min/1.73 sqM) 01/21/23 18:20 Est GFR (CKD-EPI)NonAf >90 (>60 ml/min/1.73 sqM) 01/21/23 18:20 Glucose 107 mg/dL (74-99) H 01/21/23 18:[address] Glu mg/dL 111 mg/dL 01/22/23 10:00 Hemoglobin A1c 5.5 % (<=6.0) 01/22/23 10:00 Calcium 8.9 mg/dL (8.4-10.2) 01/21/23 18:20 Total Bilirubin 1.3 mg/dL (0.2-1.3) 01/22/23 10:00 Conjugated Bilirubin 0.0 mg/dL (0.0-0.3) 01/22/23 10:00 Unconjugated Bilirubin 1.0 mg/dL (0.0-1.1) 01/22/23 10:00 Delta Bilirubin 0.3 mg/dL (0.0-0.2) H 01/22/23 10:00 AST 43 U/L (17-59) 01/22/23 10:00 ALT 34 U/L (4-49) 01/22/23 10:00 Alkaline Phosphatase 81 U/L (38-126) 01/22/23 10:00 Total Protein 7.1 g/dL (6.3-8.2) 01/22/23 10:00 Albumin 4.3 g/dL (3.5-5.0) 01/22/23 10:00 Triglycerides 77.40 mg/dL (0.00-149.00) 01/22/23 10:00 Cholesterol 161.00 mg/dL (0.00-200.00) 01/22/23 10:00 LDL Cholesterol, Calc 97.0 mg/dL (0.0-131.0) 01/22/23 10:00 VLDL Cholesterol, Calc 15.48 mg/dL (5.00-40.00) 01/22/23 10:00 HDL Cholesterol 48.50 mg/dL (40.00-60.00) 01/22/23 10:00 Cholesterol/HDL Ratio 3.32 Ratio 01/22/23 10:00 TSH 0.879 mIU/L (0.465-4.680) 01/22/23 10:00 Urine Color Yellow 01/21/23 20:00 Urine Appearance Clear (Clear) 01/21/23 20:00 Urine pH 5.0 (5.0-8.0) 01/21/23 20:00 Ur Specific [place] 1.025 (1.001-1.035) 01/21/23 20:00 Urine Protein Trace (Negative) H 01/21/23 20:00 Urine Glucose (UA) Negative (Negative) 01/21/23 20:00 Urine Ketones 1+ (Negative) H 01/21/23 20:00 Urine Blood Negative (Negative) 01/21/23 20:00 Urine Nitrite Negative (Negative) 01/21/23 20:00 Urine Bilirubin Negative (Negative) 01/21/23 20:00 Urine Urobilinogen <2.0 mg/dL (<2.0) 01/21/23 20:00 Ur Leukocyte Esterase Negative (Negative) 01/21/23 20:00 Urine Opiates Screen Not Detected (NotDetected) 01/21/23 20:00 Ur Oxycodone Screen Not Detected (NotDetected) 01/21/23 20:00 Urine Methadone Screen Not Detected (NotDetected) 01/21/23 20:00 Ur Propoxyphene Screen Not Detected (NotDetected) 01/21/23 20:00 Ur Barbiturates Screen Not Detected (NotDetected) 01/21/23 20:00 U Tricyclic Antidepress Not Detected (NotDetected) 01/21/23 20:00 Ur Phencyclidine Scrn Not Detected (NotDetected) 01/21/23 20:00 Ur Amphetamines Screen Not Detected (NotDetected) 01/21/23 20:00 U Methamphetamines Scrn Not Detected (NotDetected) 01/21/23 20:00 U Benzodiazepines Scrn Detected (NotDetected) H 01/21/23 20:00 Urine Cocaine Screen Not Detected (NotDetected) 01/21/23 20:00 U Marijuana (THC) Screen Detected (NotDetected) H 01/21/23 20:00 Serum Alcohol <10 mg/dL 01/21/23 18:20 Coronavirus (PCR) Not Detected (Not Detectd) 01/21/23 19:32 Assessment Bipolar 1 disorder, manic episode Cannabis use disorder Nicotine dependence PTSD Plan: -Patient continues to meet criteria for inpatient psychiatric admission for symptom stabilization and safety. The patient has been petitioned and certified. Patient deferred until the court. -Medications: Patient has been nonadherent with his medications. He states he'll take them today. Increase Depakote to 500 mg in the morning and 1000 mg at bedtime for mood stabilization Start Abilify 10 mg by mouth at noon time for mood stabilization -When necessary Zyprexa and Vistaril for agitation/aggression. -NRT - nicotine patch -SW on board for discharge planning. Encouraged the patient to participate in milieu.
[2023-01-24] MEDS: DIVALPROEX 500 MG TABLET.DR PO SCH (21:14)
[2023-01-25] MEDS: NICOTINE 14MG/24HR PATCH TRANSDERM SCH (08:22)
[2023-01-25] MEDS ORDERED: DIVALPROEX SPRINKLE 125 MG CAP.SPRINK PO SCH (09:00)
[2023-01-25] MEDS ORDERED: DIVALPROEX 500 MG TABLET.DR PO SCH (09:00)
[2023-01-25] MEDS ORDERED: DIVALPROEX 500 MG TABLET.DR PO STA (14:02)
--- NOTE | 2023-01-25 14:18 | P.PN ---
Subjective Progress Note Date: 01/25/23 Principal diagnosis: Progress note He was seen today in persona and was discussed at team meeting. He was highly agitated initially at the meeting in a heightened sense or urgency re; his Plan of [place] the border to [facility] . He talked with pressure of speech over a variety of topics including his family history of psychiatric disorder; Alzheimer dementia . his feeling stressed out over his split citizeneship and birthplace and his caregiver burnt out. He was confused over his birthplace; he said he was born in [facility] ( [facility] in [facility]) ; in another [facility], he was entered as born in [facility]. He has full SSI benefits and has status; He could not further explain why he plans to cross the border with no [place] passport to [facility] : he vaguely talked about his family was "buried " in [facility]. 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 He was unaware that he was in the acute florid manic phase of his psychosis. MSE> he was highly agitated. with moderate pressrues of speech. thankfully me relentlessly for "favours" . affect. labile affect congruent with thought content. Exctied mixed with irritability , grandiose and papranoid delusions . No suicidal or homicidal ideations. No hallucinations. Cog. Oriented , insight and jdugment were absent. diagnsosi: schizoaffective Disorder Bipolar subtype, actue psychosis. woth comorbid cannabis and other substances abuse is highly likely even in the absence of drug screen. Street drugs of abuse would escape routine U/D screen. Monitor his respnse. He contnue to fulfil the 2nd certificate of involuntary admission. Rx: his depakote woudl be increased to total daily dosage of 1000 mg po bid; abilify to be icnreased to 20 mg po he would be reasessed. Objective - Vital Signs Vital signs: Vital Signs Temp 96.9 F L 01/25/23 07:04 Pulse 62 01/25/23 07:04 Resp 18 01/25/23 07:04 BP 176/76 01/25/23 07:04 Pulse Ox 92 L 01/23/23 07:12 FiO2 - Labs CBC & Chem 7: 01/21/23 18:20 01/21/23 18:20
[2023-01-25] MEDS: ARIPiprazole 10 MG TAB PO SCH (15:05)
[2023-01-25] MEDS: DIVALPROEX 500 MG TABLET.DR PO SCH (20:52)
[2023-01-26] MEDS: NICOTINE 14MG/24HR PATCH TRANSDERM SCH (08:14)
[2023-01-26] MEDS: ARIPiprazole 15 MG TAB PO SCH (08:15)
[2023-01-26] MEDS: ARIPiprazole 10 MG TAB PO SCH (12:20)
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
[2023-01-26] MEDS: DIVALPROEX 500 MG TABLET.DR PO SCH (20:36)
[2023-01-27] MEDS: NICOTINE 14MG/24HR PATCH TRANSDERM SCH (08:21)
[2023-01-27] MEDS: ARIPiprazole 15 MG TAB PO SCH (08:21)
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
[2023-01-27] MEDS: ARIPiprazole 10 MG TAB PO SCH (12:55)
[2023-01-27] MEDS: DIVALPROEX 500 MG TABLET.DR PO SCH (20:06)
[2023-01-28] MEDS: NICOTINE 14MG/24HR PATCH TRANSDERM SCH (08:38)
[2023-01-28] MEDS: ARIPiprazole 15 MG TAB PO SCH (08:38)
--- NOTE | 2023-01-28 10:15 | P.PN ---
Subjective Progress Note Date: 01/28/23 Principal diagnosis: Diagnosis; Bipolar disorder, most recent manic phase with psychotic features. Subjective data: Patient with extremely polite and cooperative Patient reports that he is doing well He says that he is not having any other issues or concerns He states that he would like to have his afternoon dose of Abilify changed to 3 PM He denies otherwise any other issues or concerns Mental status examination: MENTAL STATUS EXAM: General Appearance: This 19-year-old looking his age Patient reports that he was 420 pounds before unhealthy and that now he is half the size and unhealthy Behavior: Patient is seated without any agitated behavior. Not responding to any internal stimuli Speech: Patient's speech is [fluent and nonpressured.] Hesitant. Mood/Affect: Patient reports their mood is "okay", affect is congruent and constricted. Suicidality/Homicidality: Patient denies having any homicidal ideation intent or plan. [Denies any suicidal ideations intent or plan] Perceptions: Patient denies any visual hallucinations [and denies any auditory hallucinations] Though content/process: Multiple loosely formed delusions, loose associations, illogical. Memory and concentration: Alert and oriented to time place and person concentration and attention span are fair Judgment and insight: Some improvement noted Plan: he continued to fulfil the criteria of inpatinet stay. Rx would continue with the goal of staring him on [place] in addition to Depakote. probate court hearing to be scheduled. . Explore dysfunctional family dynamics. Ativan and haldol PRN for agitation/aggression -Patient was informed of the risks, benefits and side effects of the medication and patient verbally consented to taking the medications. Patient signed med consent form and was placed in chart. - on board for discharge planning. Encourage patient to participate in groups to work on coping skills. Maulik Chamorro M.D. 01/28/23 Objective - Vital Signs Vital signs: Vital Signs Temp 97.4 F L 01/28/23 07:01 Pulse 68 01/28/23 07:01 Resp 14 01/28/23 07:01 BP 175/83 01/28/23 07:01 Pulse Ox 98 01/27/23 07:01 FiO2 Intake & Output 01/27/23 01/28/23 01/28/23 18:59 06:59 18:59 Weight 97.1 kg - Labs CBC & Chem 7: 06/25/23 18:20 01/21/23 18:20
[2023-01-28] MEDS: ARIPiprazole 10 MG TAB PO SCH (15:25)
[2023-01-28] MEDS: DIVALPROEX 500 MG TABLET.DR PO SCH (21:06)
[2023-01-29 07:11] VITALS: BP 176/72; PULSE 54; RESP 16; TEMP 97.1
[2023-01-29] MEDS: ARIPiprazole 15 MG TAB PO SCH (08:27)
[2023-01-29] MEDS: NICOTINE 14MG/24HR PATCH TRANSDERM SCH (08:27)
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
[2023-01-29] MEDS: ARIPiprazole 10 MG TAB PO SCH (13:53)
== END 2023-01-29 14:00 | disposition home or self-care (01) | DRG 885 ==
LOC: EC 17:19 → 3MHU 23:48
PROVIDERS: ADMIT Psychiatry & Neurology Psychiatry; ATTEND Psychiatry & Neurology Psychiatry
DX: F31.2 Bipolar disorder, current episode manic severe with psychotic features (principal); R45.851 Suicidal ideations; F23 Brief psychotic disorder; F41.9 Anxiety disorder, unspecified; F43.10 Post-traumatic stress disorder, unspecified; F12.10 Cannabis abuse, uncomplicated; F17.210 Nicotine dependence, cigarettes, uncomplicated; E86.0 Dehydration; Z20.822 Contact with and (suspected) exposure to COVID-19; R45.1 Restlessness and agitation; Z28.310 Unvaccinated for COVID-19; Z73.3 Stress, not elsewhere classified; Z73.0 Burn-out; Z86.73 Personal history of transient ischemic attack (TIA), and cerebral infarction without residual deficits; Z91.49 Other personal history of psychological trauma, not elsewhere classified; Z91.148 Patient's other noncompliance with medication regimen for other reason
CPT/HCPCS: 36415; 80048; 80061; 80076; 80306; 80320; 81003; 82075; 83036; 84443; 85025; 87635; 93005; 96372; 99285